=== PATIENT | female | born 1985 | race Caucasian/White ===

== ENCOUNTER 2018-11-24 22:12 | Emergency (ER) | payer BC ==
[~2018-11-24] VITALS: Ht 175.3 cm; Wt 113.4 kg
[2018-11-24] MEDS ORDERED: OMEPRAZOLE DR 20 MG CAPSULE (22:26)
--- NOTE | 2018-11-24 23:50 | NUR ---
Dr. Taylor at bedside for MSE.
[2018-11-25] MEDS ORDERED: DICYCLOMINE HCL LIQ 10 MG/5 ML UDC PO ONE
[2018-11-25] MEDS ORDERED: MAG HYDROX/AL HYDROX/SIMETH 30 ML LIQUID UDC PO ONE
[2018-11-25] MEDS ORDERED: MAG HYDROX/AL HYDROX/SIMETH 30 ML LIQUID UDC ONE (00:02)
[2018-11-25] MEDS ORDERED: DICYCLOMINE HCL LIQ 10 MG/5 ML UDC ONE (00:02)
--- NOTE | 2018-11-25 00:04 | NUR ---
Patient discharged to home in stable conditon. Written and verbal after care instructions given. Patient verbalizes understanding of instructions. Pt ambulated out of ER with steady gait, no acute signs of distress, VSS, all belongings taken.
[2018-11-25 00:05] VITALS: BP 145/90
== END 2018-11-25 00:08 | disposition home or self-care (01) ==
LOC: ER 22:12
DX: K22.4 Dyskinesia of esophagus (principal); K21.9 Gastro-esophageal reflux disease without esophagitis; Z79.899 Other long term (current) drug therapy
CPT/HCPCS: A4663